=== PATIENT | female | born 1975 | race Caucasian/White ===

== ENCOUNTER 2023-06-18 13:40 | Outpatient (AMB) | payer BC, SELFPAY ==
--- NOTE | 2023-06-18 14:42 | HO.SPINEOV ---
Intake Intake Visit Reasons: Stenosis of spinal canal Intake Note: Ms. Quintana is here today c/o back pain. MRI done [facility]/brought disc. Financial Analyst Required: No Assessment & Plan Assessment & Plan (1) Spinal stenosis at L4-L5 level: Code(s): M48.061 - Spinal stenosis, lumbar region without neurogenic claudication (2) Lumbar radiculopathy, right: Code(s): M54.16 - Radiculopathy, lumbar region Plan Dear colleague Thank you for referring Anastasiia Quintana to the office today with a chief complaint of improving right lumbar radiculopathy. 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 The pain radiated to her groin, the inside of her thigh and then to the outside of her lower leg. The pain was 9/10. She visited the emergency room. She was evaluated by Thierry Cody, orthopedic PA, who excluded hip pathology and ordered an MRI of the lumbar spine which showed moderate to severe L4-5 spinal stenosis and a grade 1 spondylolisthesis. Apparently, and standing x-ray of the lumbar spine was also obtained which I could not find in the system. Approximately 10 days ago the pain improved significantly. Currently it is a 4/10 at its worst. She still takes Celebrex and Tylenol. She also continues to have numbness in her barajas. The following conservative treatment options were tried : Prednisone course, lidocaine patch, Celebrex and Tylenol PMH: None Social history: , nonsmoker Medications: Celebrex and Tylenol Allergies: NKDA Physical Exam: Pleasant female not in obvious agony. She is able to come out of her chair without difficulties. Straight leg raise is negative. Motor exam is intact as well as sensory exam. Gait is undisturbed. Radiological Studies: MRI done at [facility] on 05/13/2023 shows moderate to severe L4-5 spinal stenosis, hyperintensity of the right L4-5 facet joint and a grade 1 spondylolisthesis. In addition there is severe degenerative disc disease L5-S1 without nerve compression. Impression/Plan: This patient has suffered an acute L5 radiculopathy after standing from a chair. The MRI shows hyperintensity of the right facet joint space and lateral recess stenosis with compression of the bilateral L5 nerve roots. Fortunately, the radiculopathy has improved significantly and therefore a surgical intervention is not required. She wonders if she can see a chiropractor for further treatment. I told her not to change a winning team. However if she wants to visit a chiropractor, then she needs to notify him of a possible spondylolisthesis. No surgery is required at this point. Thank you for allowing me to participate in your patients care. total time spent was 50 minutes in counseling ,coordination of plan, personal review of imaging, surgical decision making and subsequent plan Tyrell Verde MD, PhD Spine [facility] Trained Neurosurgeon Director, [facility] Coding Level of Care Code New Pt Level 4 (60594) Diagnoses Spinal stenosis at L4-L5 level M48.061 Lumbar radiculopathy, right M54.16
== END 2023-06-18 16:34 | disposition home or self-care (01) ==
PROVIDERS: PCP Internal Medicine; Referring Provider Physician Assistant Surgical; Visit Provider Neurological Surgery
DX: M48.061 Spinal stenosis, lumbar region without neurogenic claudication (principal); M54.16 Radiculopathy, lumbar region
CPT/HCPCS: 99204

== ENCOUNTER → 2023-06-18 13:40 | Outpatient (BNVA) | payer BC, SELFPAY | PROVIDERS: PCP Internal Medicine; Visit Provider Neurological Surgery ==